=== PATIENT | male | born 1965 | race Caucasian/White ===

== ENCOUNTER 2017-11-02 10:01 | Emergency (ER) | payer OTHER ==
[~2017-11-02] VITALS: Ht 182.9 cm; Wt 158.8 kg
[2017-11-02 10:25] VITALS: BP 157/78
== END 2017-11-02 12:00 | disposition left against medical advice (07) ==
LOC: ER 10:01 → EDBD 10:01 → ER 12:00
DX: R41.82 Altered mental status, unspecified (principal); G93.41 Metabolic encephalopathy; E11.9 Type 2 diabetes mellitus without complications; I10 Essential (primary) hypertension; K21.9 Gastro-esophageal reflux disease without esophagitis
CPT/HCPCS: 70450; 93005

== ENCOUNTER 2018-07-19 20:28 | Inpatient (IN) | payer MEDICAID, OTHER | END 2018-07-31 16:26 | disposition hospice, home (50) | LOC: TELE 07-20 02:40 → TELE-CENTR 07-20 04:20 → ICU WEST 07-21 11:51 → ER 20:28 | DX: A40.9 Streptococcal sepsis, unspecified (principal); I21.4 Non-ST elevation (NSTEMI) myocardial infarction; K76.7 Hepatorenal syndrome; R65.21 Severe sepsis with septic shock; I50.33 Acute on chronic diastolic (congestive) heart failure; D68.9 Coagulation defect, unspecified; J18.9 Pneumonia, unspecified organism; E11.22 Type 2 diabetes mellitus with diabetic chronic kidney disease; N17.9 Acute kidney failure, unspecified; N18.3 Chronic kidney disease, stage 3 (moderate); E66.01 Morbid (severe) obesity due to excess calories; D69.6 Thrombocytopenia, unspecified; E87.2 Acidosis; I11.0 Hypertensive heart disease with heart failure; K72.90 Hepatic failure, unspecified without coma; K74.60 Unspecified cirrhosis of liver; L03.115 Cellulitis of right lower limb; L03.116 Cellulitis of left lower limb; B96.89 Other specified bacterial agents as the cause of diseases classified elsewhere; D64.9 Anemia, unspecified; E87.1 Hypo-osmolality and hyponatremia; E87.5 Hyperkalemia; I13.0 Hypertensive heart and chronic kidney disease with heart failure and stage 1 through stage 4 chronic kidney disease, or unspecified chronic kidney disease; K21.9 Gastro-esophageal reflux disease without esophagitis; K70.31 Alcoholic cirrhosis of liver with ascites; N18.9 Chronic kidney disease, unspecified; N39.0 Urinary tract infection, site not specified; E83.39 Other disorders of phosphorus metabolism; E88.09 Other disorders of plasma-protein metabolism, not elsewhere classified; F32.9 Major depressive disorder, single episode, unspecified; I85.00 Esophageal varices without bleeding ==